=== PATIENT | male | born 1990 | race Caucasian/White ===

== ENCOUNTER 2018-10-13 18:55 | Emergency (ER) | payer OTHER ==
[~2018-10-13] VITALS: Ht 175.3 cm; Wt 74.9 kg
[~2018-10-13 18:55] MED LIST: ACYC400T2 PO; BACTDS PO; IBUP-1542 PO
[2018-10-13 19:04] VITALS: Ht 175.3 cm; Wt 74.9 kg
[2018-10-13] MEDS ORDERED: IBUPROFEN 600 MG TAB PO ONE (20:30)
[2018-10-13 21:21] VITALS: BP 137/80; PULSE 72; RESP 18
--- NOTE | 2018-10-14 01:11 | ERD ---
ER Documentation Chief Complaint Chief Complaint SUPERGLUE IN L EYE HPI 28-year-old male presenting to the emergency department complaining of pain to his left eye which occurred 2 hours prior to my examination after accidentally squirting crazy glue into it. He states he was working with crazy glue and it splashed up into his eye. Current pain level is rated 1/10 in severity. He reports blurry vision the left eye. He does not wear glasses or contacts. He is able to open the left eye. No other symptoms reported at this time. ROS All systems reviewed and are negative except as per history of present illness. Medications Home Meds Active Scripts Ibuprofen* (Motrin*) 600 Mg Tab, 600 MG PO Q6, #14 TAB Prov:ELEAZAR KNENEDY MD 04/03/15 Acyclovir* (Acyclovir*) 400 Mg Tablet, 400 MG PO TID, #15 TAB Prov:ELEAZAR KENNEDY MD 04/03/15 Sulfamethoxazole-Trimethoprim* (Bactrim* DS) 800-160 Mg Tab, 1 TAB PO BID for 7 Days, TAB Prov:ELEAZAR KENNEDY MD 04/03/15 Reported Medications [None] No Conflict Check 05/12/13 Allergies Allergies: Coded Allergies: No Known Drug Allergy (Verified Allergy, Unknown, 04/03/15) PMhx/Soc Medical and Surgical Hx: pt denies Medical Hx History of Surgery: Yes (Appy;Jaw Surgery) Anesthesia Reaction: No Hx Neurological Disorder: No Hx Respiratory Disorders: No Hx Cardiac Disorders: No Hx Psychiatric Problems: No Hx Miscellaneous Medical Probl: No Hx Alcohol Use: Yes (Social) Hx Substance Use: Yes (Marijuana) Hx Tobacco Use: No Smoking Status: Never smoker FmHx Family History: No diabetes Physical Exam Vitals Vital Signs Date Temp Pulse Resp B/P (MAP) Pulse Ox O2 O2 Flow FiO2 Time Delivery Rate 10/13/18 98.4 72 18 137/80 100 Room Air 21:21 (99) 10/13/18 98.3 55 18 156/86 100 19:04 (109) Physical Exam Const: No acute distress Head: Atraumatic Eyes: Left conjunctival injection. Extraocular movements intact bilaterally. ENT: Normal External Ears, Nose and Mouth. Neck: Full range of motion. No meningismus. Resp: No respiratory distress. Skin: No petechiae or rashes Ext: No cyanosis, or edema Neur: Awake and alert Psych: Normal Mood and Affect Results 24 hrs Current Medications Medications Dose Sig/Xiomara Start Time Status Last (Trade) Ordered Route PRN Stop Time Admin Dose Reason Admin Ibuprofen 600 mg ONCE ONCE 10/13/18 DC 10/13/18 (Motrin) PO 20:30 20:21 10/13/18 20:31 Procedures/MDM 28-year-old male presenting to the emergency department complaining of crazy glue in his left eye which occurred accidentally 2 hours prior to my examination. Visual acuity showed 20/20 right eye, 20/0 left eye. Visual acuity deficit likely secondary to the foreign body of crazy glue. Luis Carlos lens was used to irrigate the left eye for approximately 30 minutes. The patient was feeling improved after treatment. He was able to open the left eye fully and states his symptoms were significantly improved. He was advised to apply lubricant to the left eyelid 2-3 times per day for the next 3 days until symptoms improve. He was also advised to follow-up with ophthalmology within 24 to 48 hours. He was in agreement with the diagnosis, plan, need for follow-up, return precautions. Ophthalmologic Assessment: Patient's ocular symptoms have stabilized while they have been evaluated in the department and are appropriate for outpatient work up. No evidence of ruptured globe, retinal detachment, acute angle closure glaucoma, or deep space infection. I discussed this case with attending ED physician, Dr. Henri Puentes who is in agreement. Plan for 24 hour ophthalmologic follow up. Patient's blood pressure was elevated (>120/80) but appears stable without evidence of hypertension emergency or urgency. The patient is to follow-up and pursue outpatient monitoring and therapy with their primary care physician within 1 week and return immediately if they have any new, worsening, or concerning symptoms. Departure Diagnosis: Primary Impression: Chemical exposure of eye Condition: Fair Patient Instructions: Eye Exposure, Chemical Referrals: COMM[facility]ITY CLIN[facility] YOU HAVE RECEIVED A MEDICAL SCREENING EXAM AND THE RESULTS INDICATE THAT YOU DO NOT HAVE A CONDITION THAT REQUIRES URGENT TREATMENT IN THE EMERGENCY DEPARTMENT. FURTHER EVALUATION AND TREATMENT OF YOUR CONDITION CAN WAIT UNTIL YOU ARE SEEN IN YOUR DOCTORS OFFICE WITHIN THE NEXT 1-2 DAYS. IT IS YOUR RESPONSIBILITY TO MAKE AN APPOINTMENT FOR FOLOW-UP CARE. IF YOU HAVE A PRIMARY DOCTOR --you should call your primary doctor and schedule an appointment IF YOU DO NOT HAVE A PRIMARY DOCTOR YOU CAN CALL OUR PHYSICIAN REFERRAL HOTLINE AT IF YOU CAN NOT AFFORD TO SEE A PHYSICIAN YOU CAN CHOSE FROM THE FOLLOWING [facility]LY [facility] CLINICS [facility] [address] [facility] [address] [facility]. [facility] [address] [facility] [address] [facility] [address] [facility]. [facility] [address] Additional Instructions: Call your primary care doctor TOMORROW for an appointment during the next 1-2 days.See the doctor sooner or return here if your condition worsens before your appointment time. MARTI DEE PA-C October 14, 2018 01:11
== END 2018-10-13 21:22 | disposition home or self-care (01) ==
LOC: FTE 18:55
DX: T52.8X1A Toxic effect of other organic solvents, accidental (unintentional), initial encounter (principal)
CPT/HCPCS: Z7502; Z7610; 99282